=== PATIENT | male | born 1975 | race Caucasian/White ===

== ENCOUNTER 2019-02-09 12:31 | Emergency (ER) | payer MEDICARE, OTHER ==
[2019-02-09 13:24] LABS: ADD UMIC YES; UR ASCORBIC ACID 40 mg/dL (NEGATIVE); UR BILIRUBIN (Dip) NEGATIVE (NEGATIVE); UR BLOOD (Dip) 3+ mg/dL (NEGATIVE); UR CLARITY SLIGHTLY CLOUDY (CLEAR); UR COLOR YELLOW (YELLOW); UR GLUCOSE (Dip) NEGATIVE (NEGATIVE); UR KETONES (Dip) TRACE mg/dL (NEGATIVE); UR LEUKOCYTE ESTERASE (Dip) NEGATIVE Leu/ul (NEGATIVE); UR MUCUS FEW /HPF (NONE SEEN); UR NITRITE (Dip) NEGATIVE (NEGATIVE); UR RBC > 182 /HPF (0-5); UR SPECIFIC GRAVITY (Dip) 1.026 (1.003-1.030); UR TOTAL PROTEIN (Dip) 1+ mg/dl (NEGATIVE); UR UROBILINOGEN (Dip) 1+ mg/dL (NEGATIVE); UR WBC 3 /HPF (0-5)
[2019-02-09] MEDS: HYDROCODONE/APAP (5/325) TAB PO (13:36)
== END 2019-02-09 15:05 | disposition home or self-care (01) ==
LOC: FTE 12:31
DX: N50.811 Right testicular pain (principal); J44.9 Chronic obstructive pulmonary disease, unspecified; Z87.438 Personal history of other diseases of male genital organs
CPT/HCPCS: 76870; 81001; 87086; 87591; 99285-25